=== PATIENT | male | born 1970 | race Caucasian/White ===

== ENCOUNTER → 2022-03-23 | Outpatient (CLI) | payer OTHER | END | disposition home or self-care (01) | LOC: PREOP 05:36 | PROVIDERS: ATTEND Surgery | DX: Z01.818 Encounter for other preprocedural examination (principal) ==

== ENCOUNTER 2022-05-30 05:44 | Outpatient (CLI) | payer OTHER ==
[~2022-05-30] VITALS: Ht 175.3 cm; Wt 95.7 kg
[2022-05-30] MEDS ORDERED: PANT20TA18 PO (12:41)
[2022-05-30] MEDS ORDERED: TMSL.4C PO (12:41)
[2022-05-30] MEDS ORDERED: AMLO-168 PO (12:41)
[2022-05-30] MEDS ORDERED: TADA20TA43 PO (12:41)
== END 2022-05-30 12:51 | disposition home or self-care (01) ==
LOC: PREOP 05:44
PROVIDERS: ATTEND Surgery
DX: Z01.818 Encounter for other preprocedural examination (principal); Z12.11 Encounter for screening for malignant neoplasm of colon

== ENCOUNTER 2022-07-05 10:32 | Day surgery (SDC) | payer OTHER ==
[~2022-07-05] VITALS: Ht 175.3 cm; Wt 95.7 kg
[~2022-07-05 10:32] MED LIST: AMLO-168 PO; PANT20TA18 PO; TADA20TA43 PO; TMSL.4C PO
[2022-07-05] MEDS ORDERED: LACTATED RINGERS 1,000 ML IV STA (10:34)
[2022-07-05] MEDS ORDERED: LACTATED RINGERS 1,000 ML IV ONE (10:37)
[2022-07-05 10:50] VITALS: BP 142/100
[2022-07-05] MEDS ORDERED: MIDAZOLAM 2 MG/2 ML (VERSED) VIAL ONE (11:30)
[2022-07-05] MEDS ORDERED: PROPOFOL INJECTION 50 ML IV ONE (11:30)
--- NOTE | 2022-07-05 12:07 | Discharge Inst-Simple/Standard ---
Discharge Inst-Standard Patient Instructions/Follow Up Plan of Care/Instructions/FU: Please follow-up with Dr. Garcia in 2 weeks in outpatient clinic Activity as Tolerated: Yes Discharge Diet: Regular Diet CHEVY GARCIA DO Jul 05, 2022 12:07
[2022-07-05 12:10] VITALS: BP 172/91
--- NOTE | 2022-07-05 12:13 | Anesthesia-General Post-Op ---
MAC Patient Condition Mental Status/LOC: Same as Preop Cardiovascular: Satisfactory Nausea/Vomiting: Absent Respiratory: Satisfactory Pain: Controlled Complications: Absent Post Op Complications Complications None Follow Up Care/Instructions Patient Instructions None needed. Anesthesiology Discharge Order Discharge Order Patient is doing well, no complaints, stable vital signs, no apparent adverse anesthesia problems. No complications reported per nursing. LUDVIINA NORTON CRNA Jul 05, 2022 12:13
[2022-07-05 12:15] VITALS: BP 147/84
[2022-07-05 12:36] VITALS: BP 147/84
--- NOTE | 2022-07-05 21:07 | OPERATIVE REPORT ---
DATE OF SERVICE: 07/05/2022 PREOPERATIVE DIAGNOSIS: Screening colonoscopy. POSTOPERATIVE DIAGNOSIS: Colon polyp. PROCEDURE: Colonoscopy with hot biopsy polypectomy x1. SURGEON: Chevy Garcia DO. ANESTHESIA: Per HEAT TRANSFER TECHNICIAN. ESTIMATED BLOOD LOSS: None. COMPLICATIONS: None. INDICATIONS: The patient is a 51-year-old male, needing screening colonoscopy. He understands risks and benefits of procedure and wishes to proceed. Consent was signed in chart. DESCRIPTION OF PROCEDURE: The patient was taken to endoscopy suite, placed in left lateral recumbent position. Timeout was performed. Digital rectal exam was performed. No palpable polyps, masses, ulcerations. Scope was inserted into the rectum and advanced all the way to the cecum with minimal difficulty. Prep was adequate. Scope was then slowly retracted back. No polyps, masses, ulcerations in the cecum, ascending, transverse, descending colon, sigmoid colon. Small polyp was present, which hot biopsy polypectomy was performed. Scope was then continuously retracted back. No polyps, masses, ulcerations in the remainder of the sigmoid colon and the rectum. The scope was retroflexed noting no other pathology. Scope was returned to its normal position and slowly withdrawn until completely removed. The patient tolerated the procedure well without any complications, taken to recovery room in stable condition. RECOMMENDATION: The patient will follow up in 2 weeks. Discussed pathology results. I will recommend repeat colonoscopy in 5 years. Any issues before that be seen at that time for reevaluation. Job ID: [id number] DocumentID: [id number] Dictated Date: 07/05/2022 12:07:34 Sales And Marketing Specialist Date: 07/05/2022 21:05:00 Dictated By: CHEVY GARCIA DO
== END 2022-07-05 12:48 | disposition home or self-care (01) ==
LOC: ENDO 10:32
PROVIDERS: ATTEND Surgery
DX: Z12.11 Encounter for screening for malignant neoplasm of colon (principal); D12.5 Benign neoplasm of sigmoid colon
CPT/HCPCS: 88305